=== PATIENT | female | born 1980 | race Caucasian/White ===

== ENCOUNTER 2021-04-24 18:23 | Emergency (ER) | payer BC | END 2021-04-24 22:48 | disposition home or self-care (01) | LOC: CSHERS 18:23 | DX: S82.61XA Displaced fracture of lateral malleolus of right fibula, initial encounter for closed fracture (principal); S92.351A Displaced fracture of fifth metatarsal bone, right foot, initial encounter for closed fracture; W19.XXXA Unspecified fall, initial encounter ==

== ENCOUNTER 2021-09-15 07:58 | Outpatient (CLI) | payer BC | END 2021-09-15 07:59 | disposition home or self-care (01) | LOC: CSHLAB 07:58 | PROVIDERS: ATTEND Obstetrics & Gynecology | DX: Z01.812 Encounter for preprocedural laboratory examination (principal); Z20.822 Contact with and (suspected) exposure to COVID-19; N92.0 Excessive and frequent menstruation with regular cycle | CPT/HCPCS: 84703; 85027; 86850; 86900; 86901; U0003; U0005 ==

== ENCOUNTER 2021-09-20 09:35 | Day surgery (SDC) | payer BC ==
[2021-09-15 09:03] LABS: Hemoglobin 12.6 g/dL (12.0-15.5); Mean Corpuscular HGB CONC 32.4 g/dL (32.0-36.0); Mean Corpuscular Hemoglobin 29.4 pg (27.0-33.0); Mean Corpuscular Volume 90.9 fl (81.6-98.3); Mean Platelet Volume 11.2 fl (7.4-10.4); Platelet Count 187 10x3/uL (150-450); RBC Distribution Width 12.5 % (11.5-14.5); Red Blood Cell (RBC) Count 4.28 10x6/uL (3.90-5.03); White Blood Cell (WBC) Count 4.5 10x3/uL (3.5-10.5)
[2021-09-15 09:09] LABS: BHCG - Serum Negative (NEGATIVE); Pregs Control Background? CLEAR/WHITE (CLR/WHITE); Pregs Control Bar Appear? YES (CONTROL BAR)
[2021-09-15 13:41] VITALS: BMI 25.0
[2021-09-20] MEDS ORDERED: Lidocaine 1% MPF 2 ML VIAL ONE (09:53)
[2021-09-20] MEDS ORDERED: Gabapentin 300 MG CAP ONE (09:56)
[2021-09-20] MEDS ORDERED: CeleCOXIB 100 MG CAP ONE (09:56)
[2021-09-20] MEDS ORDERED: Famotidine/PF 20 mg/2ml Vial ONE (09:59)
[2021-09-20] MEDS ORDERED: Bupivacaine PF 0.5% 30 ML VIAL ONE ×2 (10:42→12:43)
[2021-09-20] MEDS ORDERED: EPINEPHrine 1 MG/ML AMP ONE (10:42)
[2021-09-20] MEDS ORDERED: Fentanyl 250 MCG/5 ML VIAL ONE (11:46)
[2021-09-20] MEDS ORDERED: Dexamethasone 4 mg/ml Vial ONE (11:46)
[2021-09-20] MEDS ORDERED: PROPOFOL 20 ML ONE ×2 (11:46→12:53)
[2021-09-20] MEDS ORDERED: Ondansetron PF 4 MG/2 ML Vial ONE ×2 (11:46→12:38)
[2021-09-20] MEDS ORDERED: Rocuronium Bromide 10 MG/ML (10ML VIAL) ONE (11:47)
[2021-09-20] MEDS ORDERED: Glycopyrrolate 0.2 MG/ML 5 ML SYRINGE ONE (12:00)
[2021-09-20] MEDS ORDERED: PHENYLEPHRINE-NS 100 MCG/ML 10 ML SYRINGE ONE (12:00)
[2021-09-20] MEDS ORDERED: ceFAZolin 2 GM/Dextrose 50 ML IVPB ONE (12:05)
[2021-09-20] MEDS ORDERED: Metoclopramide HCl 10 MG/2 ML VIAL ONE (12:38)
[2021-09-20] MEDS ORDERED: Fentanyl 100 MCG/2 ML VIAL ONE (14:18)
== END 2021-09-20 17:35 | disposition home or self-care (01) ==
LOC: CSHSDC 09:35
PROVIDERS: ATTEND Obstetrics & Gynecology
PROC: 0UT94ZZ Resection of Uterus, Percutaneous Endoscopic Approach (ICD-10-PCS; principal; 2021-09-20)
PROC: 8E0W8CZ Robotic Assisted Procedure of Trunk Region, Via Natural or Artificial Opening Endoscopic (ICD-10-PCS; principal; 2021-09-20)
PROC: 0UT74ZZ Resection of Bilateral Fallopian Tubes, Percutaneous Endoscopic Approach (ICD-10-PCS; principal; 2021-09-20)
DX: N87.9 Dysplasia of cervix uteri, unspecified (principal); N88.8 Other specified noninflammatory disorders of cervix uteri; N80.0 Endometriosis of uterus; N83.8 Other noninflammatory disorders of ovary, fallopian tube and broad ligament; N94.6 Dysmenorrhea, unspecified; Z88.2 Allergy status to sulfonamides; Z88.5 Allergy status to narcotic agent; Z20.822 Contact with and (suspected) exposure to COVID-19
CPT/HCPCS: 84703; 85027; 86850; 86900; 86901; 88307; C1776; J0171; J0690; J1100; J2405; J2704; J2765; J3010; S0020; S0028; U0003; U0005